=== PATIENT | male | born 1970 | race Asian ===

== ENCOUNTER 2017-01-13 07:58 | Emergency (ER) | payer BC ==
[2017-01-13] MEDS ORDERED: diPHENhydraMINE PO* 50 MG PO ONE (08:43)
[2017-01-13] MEDS ORDERED: Famotidine TAB* 20 MG PO ONE (09:48)
--- NOTE | 2017-01-13 11:13 | ED ---
Belle Frederick SooYoung, scribed for Denis Salguero MD on 01/13/17 at 0819 . Allergic Reaction/Systemic - HPI Summary HPI Summary: A 46 y/o M presents to ED with diffuse erythematous and pruritic rash onset this AM. Pt states he noticed the rash a little bit last night, but it had noticeably worsened when he woke up this AM. Diffuse rash present around collar bone, bilat underarms, posterior BLE, across the hips and lower abd. Denies dyspnea, dysphagia, CP. Pt is visiting in [place] and staying in a hotel. He ate last night at the same restaurant he ate at previously this trip. - History of Current Complaint Chief Complaint: EDAllergicReaction Time Seen by Provider: 01/13/17 08:15 Hx Obtained From: Patient Onset/Duration: Gradual Onset, Still Present Timing: Constant, Lasting Hours Severity Initially: Mild Severity Currently: Mild Pain Intensity: 0 Pain Scale Used: 0-10 Numeric Location: Diffuse Character: Pruritus - and erythematous Associated Signs And Symptoms: Positive: Rash, Other: - neg: dysphagia. Negative: Chest Pain, Difficulty Breathing - Allergies/Home Medications Allergies/Adverse Reactions: Allergies Allergy/AdvReac Type Severity Reaction Status Date / Time No Known Allergies Allergy Verified 01/13/17 08:03 PMH/Surg Hx/FS Hx/Imm Hx Previously Healthy: Yes Sensory History: Denies: Hx Legally Blind, Hx Deafness Infectious Disease History: No Infectious Disease History: Denies: Traveled Outside the [place] in Last 30 Days - Social History Occupation: Unemployed - OTHER Lives: With Family Alcohol Use: Occasionally Hx Substance Use: No Substance Use Type: Reports: None Hx Tobacco Use: No Smoking Status (MU): Never Smoked Tobacco Review of Systems ENT: Other - neg: dysphagia Negative: Shortness Of Breath Positive: Rash - diffuse, erythematous and pruritic All Other Systems Reviewed And Are Negative: Yes Physical Exam Triage Information Reviewed: Yes Vital Signs On Initial Exam: Initial Vitals Temp Pulse Resp BP Pulse Ox 97.0 F 63 15 130/88 100 01/13/17 08:00 01/13/17 08:00 01/13/17 08:00 01/13/17 08:00 01/13/17 08:00 Vital Signs Reviewed: Yes Appearance: Positive: Well-Appearing, No Pain Distress Skin: Positive: Warm, Skin Color Reflects Adequate Perfusion, Dry, Other - POS: DIFFUSE ERYTHEMATOUS RASH Head/Face: Positive: Normal Head/Face Inspection Eyes: Positive: Normal ENT: Positive: Normal ENT inspection Neck: Positive: Supple, Nontender Respiratory/Lung Sounds: Positive: Clear to Auscultation, Breath Sounds Present Cardiovascular: Positive: RRR Musculoskeletal: Positive: Normal Neurological: Positive: Normal Psychiatric: Positive: Normal, Affect/Mood Appropriate Diagnostics - Vital Signs Vital Signs Temp Pulse Resp BP Pulse Ox 01/13/17 08:00 97.0 F 63 15 130/88 100 - Laboratory Lab Statement: Any lab studies that have been ordered have been reviewed, and results considered in the medical decision making process. Re-Evaluation - Re-Evaluation 1 Re-Evaluation Time: 10:56 Change: Improved Comment: Pt is improved after medications. With d/c home. Pt voiced understanding. Allergic Reaction Course/Dx - Course Assessment/Plan: Pt is a 46 y/o M presenting with diffuse erythamatous rash. Negative dyspnea, dysphagia, CP. NKA. Given Benadryl 50mg PO and Pepcid 20mg PO. On reeval, pt has improved. Will D/C home without meds. Pt told to use Benadryl and Pepcid as needed and to f/u with PCP. - Diagnoses Provider Diagnoses: Urticaria Discharge - Discharge Plan Condition: Stable Disposition: HOME Patient Education Materials: Urticaria (ED) Referrals: Non Staff,Doctor [Primary Care Provider] - Additional Instructions: As we discussed: Take Benadryl and Pepcid as needed. Follow up with your primary care physician. Return to ED with new or worsening symptoms. The documentation as recorded by the Belle [place] SooYoung accurately reflects the service I personally performed and the decisions made by me, Denis Salguero MD.
[2017-01-13 11:14] VITALS: BP 124/86
== END 2017-01-13 11:11 | disposition home or self-care (01) ==
LOC: ED 07:58
DX: L50.9 Urticaria, unspecified (principal); R21 Rash and other nonspecific skin eruption; R13.10 Dysphagia, unspecified
CPT/HCPCS: 99282; A9270-GY